=== PATIENT | female | born 1965 | race Caucasian/White ===

== ENCOUNTER 2018-09-21 12:24 | Observation (INO) | payer BC ==
[~2018-09-21] VITALS: Ht 160 cm; Wt 169.8 kg
--- NOTE | 2018-09-21 13:07 | RAD ---
PORTABLE CHEST 1V History: chest pain Comparison: None. Findings: Single view of the chest is submitted. There are couple of somewhat round opacities of the right lung base not appreciated on previous exam. There is no pneumothorax or pleural fluid. Pericardial cardiac silhouette is enlarged although stable. Impression: 1. There are couple of somewhat round opacities of the right lung base not appreciated on previous exam, nodules not excluded for which CT evaluation recommended. Electronically signed by: Alex Carpio MD (09/21/2018 1:04 PM) [id number]
[2018-09-21] MEDS ORDERED: LIDO:MAALOX 1:1 20 ML SINGLE DOSE. SWSW ONE (13:15)
[2018-09-21 13:21] LABS: BASO # 0.1 x10^3/uL (0.0-0.2); BASO % 1 % (0-3); EOS # 0.1 x10^3/uL (0.0-0.7); EOS % 1 % (0-3); HEMATOCRIT 37.4 % (36.0-47.0); HEMOGLOBIN 12.1 g/dL (12.0-15.5); LYMPH # 2.8 x10^3/uL (1.0-4.8); LYMPH % 23 % (24-48); MEAN CORPUSCULAR HEMOGLOBIN 27 pg (25-35); MEAN CORPUSCULAR HGB CONC 33 g/dL (31-37); MEAN CORPUSCULAR VOLUME 84 fL (79-100); MONO # 1.1 x10^3/uL (0.0-1.1); MONO % 9 % (0-9); NEUT # 8.3 x10^3uL (1.8-7.7); NEUT % 67 % (31-73); PLATELET COUNT 335 x10^3/uL (140-400); RED BLOOD COUNT 4.48 x10^6/uL (3.50-5.40); RED CELL DISTRIBUTION WIDTH 16.4 % (11.5-14.5); WHITE BLOOD COUNT 12.4 x10^3/uL (4.0-11.0)
[2018-09-21 13:35] LABS: PROTHROMBIN TIME PATIENT 13.4 SEC (11.7-14.0)
[2018-09-21 13:43] LABS: CALCIUM 9.4 mg/dL (8.5-10.1); CREATININE 0.9 mg/dL (0.6-1.0); POTASSIUM 3.9 mmol/L (3.5-5.1)
[2018-09-21 13:48] LABS: ALBUMIN 3.4 g/dL (3.4-5.0); ALBUMIN/GLOBULIN RATIO 0.8 (1.0-1.7); TOTAL BILIRUBIN 0.6 mg/dL (0.2-1.0); TOTAL PROTEIN 7.5 g/dL (6.4-8.2)
[2018-09-21] MEDS ORDERED: ASPIRIN CHEWABLE 81 MG TABLET. PO ONE (14:30)
[2018-09-21] MEDS ORDERED: IOHEXOL 350 MG/ML 100 ML VIAL. IV ONE (14:45)
[2018-09-21] MEDS ORDERED: CONTRAST GIVEN. MC PRN (15:00)
--- NOTE | 2018-09-21 15:11 | EKG ---
[facility] [address] [place] [address] Test Date: 2018-09-21 Test Time: 12:34:04 Pat Name: ARLENE SALAZAR Department: Room: Gender: F Director Of Research And Development: : 1965 Requested By: BEVERLY REILLY Order Number: [id number] Reading MD: Shadi Godoy Measurements Intervals [place] Rate: 86 P: 32 AK: 164 QRS: 0 QRSD: 98 T: 30 QT: 384 QTc: 463 Interpretive Statements SINUS RHYTHM LEFTWARD AXIS Electronically Signed On 09-25-2018 9:20:21 CDT by Shadi Godoy
--- NOTE | 2018-09-21 15:30 | PHYS DOC ---
Past Medical History Past Medical History: Anxiety, Asthma, GERD, Hypertension Past Surgical History: Cholecystectomy, Other Additional Past Surgical Histo: I&D/REMOVE INFECTION/BX'S Alcohol Use: None Drug Use: None Adult General Chief Complaint Chief Complaint: CHEST PAIN HPI HPI Patient is a 53 year old female is presenting with chief complaint of chest pain. Initially she told me that it was, like a burning and sharp pain in her to take a deep breath but then her family member who was at the bedside told me that it is more like a squeezing pain she feels it in both of her shoulders she gets short of breath when she stands up too long it is making it difficult for her to work it is happening with more frequency over the last couple of weeks. The family members quite concerned about her overall situation. The patient had a stress test about 3 or 4 years ago U reportedly in the setting of elevated blood pressure. Review of Systems Review of Systems Constitutional: Denies fever or chills [] Eyes: Denies change in visual acuity, redness, or eye pain [] \ : Denies dysuria or hematuria [] Musculoskeletal: Denies back pain or joint pain [] Integument: Denies rash or skin lesions [] Neurologic: Denies headache, focal weakness or sensory changes [] Endocrine: Denies polyuria or polydipsia [] All other systems were reviewed and found to be within normal limits, except as documented in this note. Current Medications Current Medications Current Medications Medications (Trade) Dose Ordered Sig/Ravindra Start Time Stop Time Status Last Admin Dose Admin Aspirin (Children'S Aspirin) 324 mg 1X ONCE 09/21/18 14:30 09/21/18 14:40 DC 09/21/18 14:42 324 MG Info (CONTRAST GIVEN -- Rx MONITORING) 1 each PRN DAILY PRN 09/21/18 15:00 09/23/18 14:59 Iohexol (Omnipaque 350 Mg/ml) 100 ml 1X ONCE 09/21/18 14:45 09/21/18 14:48 DC 09/21/18 14:45 100 ML Multi-Ingredient Mouthwash/Gargle (Gi Cocktail) 20 ml 1X ONCE 09/21/18 13:15 09/21/18 13:16 DC 09/21/18 13:23 20 ML Allergies Allergies Allergies Uncoded Allergies Type Severity Reaction Last Updated Verified ARTIFICIAL SWEETNERS Allergy Unknown 09/21/18 Physical Exam Physical Exam Constitutional: Well developed, obese, no acute distress, non-toxic appearance. [] HENT: Normocephalic, atraumatic, bilateral external ears normal, oropharynx moist, no oral exudates, nose normal. [] Eyes: PERRLA, EOMI, conjunctiva normal, no discharge. [] Neck: Normal range of motion, no tenderness, supple, no stridor. [] Cardiovascular:Heart rate regular rhythm, no murmur [] Lungs & Thorax: Bilateral breath sounds clear to auscultation [] Abdomen: Bowel sounds normal, soft, no tenderness, no masses, no pulsatile mass es. [] Skin: Warm, dry, no erythema, no rash. [] Back: No tenderness, no CVA tenderness. [] Extremities: No tenderness, no cyanosis, no clubbing, ROM intact, no edema. [] Neurologic: Alert and oriented X 3, normal motor function, normal sensory function, no focal deficits noted. [] Psychologic: Affect normal, judgement normal, mood normal. [] Current Patient Data Vital Signs Vital Signs Date Time Temp Pulse Resp B/P (MAP) Pulse Ox O2 Delivery O2 Flow Rate FiO2 09/21/18 12:30 97.5 89 16 134/66 (88) 97 Room Air 97.5 Lab Values Laboratory Tests Test 09/21/18 13:10 White Blood Count 12.4 x10^3/uL (4.0-11.0) H Red Blood Count 4.48 x10^6/uL (3.50-5.40) Hemoglobin 12.1 g/dL (12.0-15.5) Hematocrit 37.4 % (36.0-47.0) Mean Corpuscular Volume 84 fL (79-100) Mean Corpuscular Hemoglobin 27 pg (25-35) Mean Corpuscular Hemoglobin Concent 33 g/dL (31-37) Red Cell Distribution Width 16.4 % (11.5-14.5) H Platelet Count 335 x10^3/uL (140-400) Neutrophils (%) (Auto) 67 % (31-73) Lymphocytes (%) (Auto) 23 % (24-48) L Monocytes (%) (Auto) 9 % (0-9) Eosinophils (%) (Auto) 1 % (0-3) Basophils (%) (Auto) 1 % (0-3) Neutrophils # (Auto) 8.3 x10^3uL (1.8-7.7) H Lymphocytes # (Auto) 2.8 x10^3/uL (1.0-4.8) Monocytes # (Auto) 1.1 x10^3/uL (0.0-1.1) Eosinophils # (Auto) 0.1 x10^3/uL (0.0-0.7) Basophils # (Auto) 0.1 x10^3/uL (0.0-0.2) Prothrombin Time 13.4 SEC (11.7-14.0) Prothrombin Time INR 1.1 (0.8-1.1) D-Dimer (Jovana) 0.97 ug/mlFEU (0.00-0.50) H Sodium Level 138 mmol/L (136-145) Potassium Level 3.9 mmol/L (3.5-5.1) Chloride Level 100 mmol/L (98-107) Carbon Dioxide Level 26 mmol/L (21-32) Anion Gap 12 (6-14) Blood Urea Nitrogen 15 mg/dL (7-20) Creatinine 0.9 mg/dL (0.6-1.0) Estimated GFR (Cockcroft-Gault) 66.0 BUN/Creatinine Ratio 17 (6-20) Glucose Level 97 mg/dL (70-99) Calcium Level 9.4 mg/dL (8.5-10.1) Total Bilirubin 0.6 mg/dL (0.2-1.0) Aspartate Amino Transferase (AST) 30 U/L (15-37) Alanine Aminotransferase (ALT) 36 U/L (14-59) Alkaline Phosphatase 75 U/L (46-116) Troponin I Quantitative < 0.017 ng/mL (0.000-0.055) Total Protein 7.5 g/dL (6.4-8.2) Albumin 3.4 g/dL (3.4-5.0) Albumin/Globulin Ratio 0.8 (1.0-1.7) L Lipase 139 U/L (73-393) Laboratory Tests 09/21/18 13:10 Laboratory Tests 09/21/18 13:10 EKG EKG []EKG shows a normal sinus rhythm rate of 86 no acute STEMI or ischemia identified Radiology/Procedures Radiology/Procedures [] Impressions: Impression: 1. There are couple of somewhat round opacities of the right lung base not appreciated on previous exam, nodules not excluded for which CT evaluation recommended. Electronically signed by: Ant Mckeon MD (09/21/2018 1:04 PM) [id number] DICTATED and SIGNED BY: ANT MCKEON MD DATE: 09/21/18 0030 Course & Med Decision Making Course & Med Decision Making Pertinent Labs and Imaging studies reviewed. 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 Dragon Disclaimer Dragon Disclaimer This electronic medical record was generated, in whole or in part, using a voice recognition dictation system. Departure Departure Impression: Primary Impression: Chest pain Disposition: ADMITTED INPATIENT Admitting Physician: Bereket Cornejo Condition: STABLE Referrals: NON,STAFF (PCP) BEVERLY REILLY MD Sep 21, 2018 15:30
--- NOTE | 2018-09-21 15:50 | RAD ---
Chest CTA History: Shortness of air and chest pain for 2 days Technique: After bolus of intravenous contrast, CT imaging was performed of the chest. Multiplanar reconstruction images to include MIP reconstruction images are submitted. Exposure: One or more of the following individualized dose reduction techniques were utilized for this examination: 1. Automated exposure control 2. Adjustment of the mA and/or kV according to patient size 3. Use of iterative reconstruction technique. Comparison: Chest radiograph the same day and previous chest CT May 14, 2009 Findings: [ ] Contrast bolus in the pulmonary arteries is suboptimal and there is motion degradation. No embolism is identified of the main pulmonary arteries although otherwise difficult to accurately evaluate for pulmonary embolic disease of the smaller and more distal branches. There is new cavitary lesion of the right lower lobe now present best seen on axial image 66 series 3, measures about 1.6 cm transverse by 1.3 cm AP by 1.3 cm cc. There is right middle lobe mass now present about 1.8 x 1 cm axial oblique dimensions by 1.5 cm CC best seen image 75 series 3. Previously there was large area of infiltrate of the right middle lobe. There are some small calcified left lower lobe pulmonary nodules as seen previously. Major airways are patent. There is no pericardial pleural fluid or pneumothorax. There is likely hepatic steatosis. No significantly enlarged nodes are identified of the chest, some small mediastinal lobes, largest pretracheal node about 0.6 cm short axis dimension. There is multilevel thoracic spondylosis. Impression: 1. No central pulmonary embolism is identified of the main pulmonary arteries although otherwise cannot accurately evaluate for pulmonary embolic disease on this exam. 2. There is now cavitary nodule of the right lower lobe, also noncalcified mass of the right middle lobe. Neoplasm is not excluded although sequela of infection is possible including consideration of tuberculosis given cavitation. On the previous 2008 exam there was a large area of infiltrate of the right middle lobe, focus of nodularity of the right middle lobe potentially related to sequela of fibrosis although other nodule not excluded. Potentially PET CT may be beneficial to assess for degree of metabolic activity. Electronically signed by: Alex Carpio MD (09/21/2018 3:47 PM) [id number]
[2018-09-21 16:29] VITALS: BP 123/63
[2018-09-21] MEDS ORDERED: AMLO10TA8 PO (17:11)
[2018-09-21] MEDS ORDERED: FERR325T14 PO (17:11)
[2018-09-21] MEDS ORDERED: POTA20TA4 PO (17:11)
[2018-09-21] MEDS ORDERED: ESOM20CA PO (17:11)
[2018-09-21] MEDS ORDERED: LISI-334 PO (17:11)
[2018-09-21] MEDS ORDERED: PARO40TA3 PO (17:11)
[2018-09-21] MEDS ORDERED: ALBU2.5V8 INH (17:11)
[2018-09-21] MEDS ORDERED: HYDR12.575 PO (17:11)
[2018-09-21] MEDS ORDERED: METO25TA4 PO (17:11)
[2018-09-21] MEDS ORDERED: ALBUTEROL SULFATE 2.5 MG/3 ML NEBU. INH PRN (17:15)
[2018-09-21 19:12] VITALS: BP 129/73
[2018-09-21] MEDS: METOPROLOL TART IMMED RELEASE 25 MG TABLET. PO SCH (20:53)
[2018-09-21 23:22] VITALS: BP 148/80
[2018-09-22 03:06] VITALS: BP 127/70
[2018-09-22 07:00] VITALS: BP 140/70
[2018-09-22] MEDS ORDERED: PANTOPRAZOLE 40 MG TABLET.DR. PO SCH (07:30)
[2018-09-22] MEDS ORDERED: hydroCHLOROthiazide 12.5 MG CAPSULE PO SCH (09:00)
[2018-09-22] MEDS ORDERED: PARoxetine 20 MG TABLET PO SCH (09:00)
[2018-09-22] MEDS ORDERED: LISINOPRIL 20 MG TABLET PO SCH (09:00)
[2018-09-22] MEDS ORDERED: FERROUS SULFATE 325 MG TABLET. PO SCH (09:00)
[2018-09-22] MEDS ORDERED: POTASSIUM CHLORIDE 20 MEQ TABLET.ER. PO SCH (09:00)
[2018-09-22] MEDS ORDERED: amLODIPine BESYLATE 10 MG TABLET PO SCH (09:00)
--- NOTE | 2018-09-22 09:02 | PDOC1 ---
History and Physical Date of Admission Date of Admission 09/21/18 Identification/Chief Complaint Chief Complaint Chest pain unrelieved with sublingual Nitro, came to ER Source Source: Chart review, Patient History of Present Illness History of Present Illness Several days of chest pain but more severe yesterday prompting her to come to ER but EKG and enzymes not showing acute findings. She has been having exertional dyspnea and work and family have been encouraging her seek more medical atte ntion. She last saw Dr. Massey in office 05/12. She has a hx of a "massive lung infection" from 10 yrs ago resulting in mediastinoscopy, right thoracotomy and lymph node biopsy but cannot give details other than it was not TB. She does not smoke, she has a lot of stress/aggravation at work, she remains morbidly obese. She is on chronic meds for refractory hypertension, GERD, de pression and asthma Past Medical History Cardiovascular: HTN Pulmonary: Asthma, Pneumonia, Other (cavitary lung lesion) GI: GERD Heme/Onc: No pertinent hx Hepatobiliary: No pertinent hx Psych: Depression Rheumatologic: No pertinent hx Infectious disease: Other (Massive lung infection) ENT: No pertinent hx Renal/: No pertinent hx Endocrine: Other (glucose intolerance) Dermatology: No pertinent hx Past Surgical History Past Surgical History: Other (mediatinoscopy, right thoracotomy with removal of lymph nodes) Family History Family History: No Significant Social History Smoke: No ALCOHOL: none Current Problem List Problem List Problems Medical Problems: (1) Chest pain Status: Acute Current Medications Current Medications Current Medications Medications (Trade) Dose Ordered Sig/Ravindra Start Time Stop Time Status Last Admin Dose Admin Albuterol Sulfate (Ventolin Neb Soln) 2.5 mg PRN Q6HRS PRN 09/21/18 17:15 Amlodipine Besylate (Norvasc) 10 mg DAILY 09/22/18 09:00 Aspirin (Children'S Aspirin) 324 mg 1X ONCE 09/21/18 14:30 09/21/18 14:40 DC 09/21/18 14:42 324 MG Ferrous Sulfate (Feosol) 325 mg DAILY 09/22/18 09:00 Hydrochlorothiazide (Microzide) 12.5 mg DAILY 09/22/18 09:00 Info (CONTRAST GIVEN -- Rx MONITORING) 1 each PRN DAILY PRN 09/21/18 15:00 09/23/18 14:59 Iohexol (Omnipaque 350 Mg/ml) 100 ml 1X ONCE 09/21/18 14:45 09/21/18 14:48 DC 09/21/18 14:45 100 ML Lisinopril (Prinivil) 20 mg DAILY 09/22/18 09:00 Metoprolol Tartrate (Lopressor) 25 mg BID 09/21/18 21:00 09/21/18 20:53 25 MG Multi-Ingredient Mouthwash/Gargle (Gi Cocktail) 20 ml 1X ONCE 09/21/18 13:15 09/21/18 13:16 DC 09/21/18 13:23 20 ML Pantoprazole Sodium (Protonix) 40 mg DAILYAC 09/22/18 07:30 Paroxetine HCl (Paxil) 40 mg DAILY 09/22/18 09:00 Potassium Chloride (Klor-Con) 20 meq DAILY 09/22/18 09:00 Allergies Allergies Allergies Coded Allergies Type Severity Reaction Last Updated Verified aspartame Allergy Intermediate 09/22/18 Yes saccharin Allergy Intermediate 09/22/18 Yes sucralose Allergy Intermediate 09/22/18 Yes ROS Review of System CONSTITUTIONAL: No fever or chills EYES: No recent changes SKIN: No rash or itching CARDIOVASCULAR: see HPI RESPIRATORY: SOA with activity GASTROINTESTINAL: No nausea, vomiting or abdominal pain NEUROLOGICAL: No headaches or weakness ENDOCRINE: No cold or heat intolerance GENITOURINARY: No urgency or frequency of urination MUSCULOSKELETAL: No back pain or joint pain LYMPHATICS: No enlarged lymph nodes PSYCHIATRIC: work stress Physical Exam Physical Exam GEN.: No apparent distress. Alert and oriented. HEENT: Head is normocephalic, atraumatic NECK: Supple. LUNGS: Clear to auscultation. HEART: RRR, S1, S2 present. Peripheral pulses intact ABDOMEN: Obese, Soft, nontender. Positive bowel sounds. EXTREMITIES: Without any cyanosis. NEUROLOGIC: Normal speech, normal tone PSYCHIATRIC: Normal affect, normal mood. SKIN: No ulcerations Vitals Vitals Vital Signs Date Time Temp Pulse Resp B/P (MAP) Pulse Ox O2 Delivery O2 Flow Rate FiO2 09/22/18 07:00 97.3 72 16 140/70 (93) 96 Room Air 97.3 Labs Labs Laboratory Tests Test 09/21/18 13:10 09/21/18 17:30 09/21/18 20:25 09/22/18 04:00 White Blood Count 12.4 x10^3/uL (4.0-11.0) Red Blood Count 4.48 x10^6/uL (3.50-5.40) Hemoglobin 12.1 g/dL (12.0-15.5) Hematocrit 37.4 % (36.0-47.0) Mean Corpuscular Volume 84 fL (79-100) Mean Corpuscular Hemoglobin 27 pg (25-35) Mean Corpuscular Hemoglobin Concent 33 g/dL (31-37) Red Cell Distribution Width 16.4 % (11.5-14.5) Platelet Count 335 x10^3/uL (140-400) Neutrophils (%) (Auto) 67 % (31-73) Lymphocytes (%) (Auto) 23 % (24-48) Monocytes (%) (Auto) 9 % (0-9) Eosinophils (%) (Auto) 1 % (0-3) Basophils (%) (Auto) 1 % (0-3) Neutrophils # (Auto) 8.3 x10^3uL (1.8-7.7) Lymphocytes # (Auto) 2.8 x10^3/uL (1.0-4.8) Monocytes # (Auto) 1.1 x10^3/uL (0.0-1.1) Eosinophils # (Auto) 0.1 x10^3/uL (0.0-0.7) Basophils # (Auto) 0.1 x10^3/uL (0.0-0.2) Prothrombin Time 13.4 SEC (11.7-14.0) Prothromb Time International Ratio 1.1 (0.8-1.1) D-Dimer (Jovana) 0.97 ug/mlFEU (0.00-0.50) Sodium Level 138 mmol/L (136-145) Potassium Level 3.9 mmol/L (3.5-5.1) Chloride Level 100 mmol/L (98-107) Carbon Dioxide Level 26 mmol/L (21-32) Anion Gap 12 (6-14) Blood Urea Nitrogen 15 mg/dL (7-20) Creatinine 0.9 mg/dL (0.6-1.0) Estimated GFR (Cockcroft-Gault) 66.0 BUN/Creatinine Ratio 17 (6-20) Glucose Level 97 mg/dL (70-99) Calcium Level 9.4 mg/dL (8.5-10.1) Total Bilirubin 0.6 mg/dL (0.2-1.0) Aspartate Amino Transf (AST/SGOT) 30 U/L (15-37) Alanine Aminotransferase (ALT/SGPT) 36 U/L (14-59) Alkaline Phosphatase 75 U/L (46-116) Troponin I Quantitative < 0.017 ng/mL (0.000-0.055) < 0.017 ng/mL (0.000-0.055) < 0.017 ng/mL (0.000-0.055) Total Protein 7.5 g/dL (6.4-8.2) Albumin 3.4 g/dL (3.4-5.0) Albumin/Globulin Ratio 0.8 (1.0-1.7) Lipase 139 U/L (73-393) Triglycerides Level 123 mg/dL (0-150) Cholesterol Level 165 mg/dL (0-200) LDL Cholesterol, Calculated 107 mg/dL (0-100) VLDL Cholesterol, Calculated 25 mg/dL (0-40) Non-HDL Cholesterol Calculated 132 mg/dL (0-129) HDL Cholesterol 33 mg/dL (40-60) Cholesterol/HDL Ratio 5.0 Laboratory Tests Test 09/21/18 13:10 09/21/18 17:30 09/21/18 20:25 09/22/18 04:00 White Blood Count 12.4 x10^3/uL (4.0-11.0) Red Blood Count 4.48 x10^6/uL (3.50-5.40) Hemoglobin 12.1 g/dL (12.0-15.5) Hematocrit 37.4 % (36.0-47.0) Mean Corpuscular Volume 84 fL (79-100) Mean Corpuscular Hemoglobin 27 pg (25-35) Mean Corpuscular Hemoglobin Concent 33 g/dL (31-37) Red Cell Distribution Width 16.4 % (11.5-14.5) Platelet Count 335 x10^3/uL (140-400) Neutrophils (%) (Auto) 67 % (31-73) Lymphocytes (%) (Auto) 23 % (24-48) Monocytes (%) (Auto) 9 % (0-9) Eosinophils (%) (Auto) 1 % (0-3) Basophils (%) (Auto) 1 % (0-3) Neutrophils # (Auto) 8.3 x10^3uL (1.8-7.7) Lymphocytes # (Auto) 2.8 x10^3/uL (1.0-4.8) Monocytes # (Auto) 1.1 x10^3/uL (0.0-1.1) Eosinophils # (Auto) 0.1 x10^3/uL (0.0-0.7) Basophils # (Auto) 0.1 x10^3/uL (0.0-0.2) Prothrombin Time 13.4 SEC (11.7-14.0) Prothromb Time International Ratio 1.1 (0.8-1.1) D-Dimer (Jovana) 0.97 ug/mlFEU (0.00-0.50) Sodium Level 138 mmol/L (136-145) Potassium Level 3.9 mmol/L (3.5-5.1) Chloride Level 100 mmol/L (98-107) Carbon Dioxide Level 26 mmol/L (21-32) Anion Gap 12 (6-14) Blood Urea Nitrogen 15 mg/dL (7-20) Creatinine 0.9 mg/dL (0.6-1.0) Estimated GFR (Cockcroft-Gault) 66.0 BUN/Creatinine Ratio 17 (6-20) Glucose Level 97 mg/dL (70-99) Calcium Level 9.4 mg/dL (8.5-10.1) Total Bilirubin 0.6 mg/dL (0.2-1.0) Aspartate Amino Transf (AST/SGOT) 30 U/L (15-37) Alanine Aminotransferase (ALT/SGPT) 36 U/L (14-59) Alkaline Phosphatase 75 U/L (46-116) Troponin I Quantitative < 0.017 ng/mL (0.000-0.055) < 0.017 ng/mL (0.000-0.055) < 0.017 ng/mL (0.000-0.055) Total Protein 7.5 g/dL (6.4-8.2) Albumin 3.4 g/dL (3.4-5.0) Albumin/Globulin Ratio 0.8 (1.0-1.7) Lipase 139 U/L (73-393) Triglycerides Level 123 mg/dL (0-150) Cholesterol Level 165 mg/dL (0-200) LDL Cholesterol, Calculated 107 mg/dL (0-100) VLDL Cholesterol, Calculated 25 mg/dL (0-40) Non-HDL Cholesterol Calculated 132 mg/dL (0-129) HDL Cholesterol 33 mg/dL (40-60) Cholesterol/HDL Ratio 5.0 Images Images Chest CTA History: Shortness of air and chest pain for 2 days Technique: After bolus of intravenous contrast, CT imaging was performed of the chest. Multiplanar reconstruction images to include MIP reconstruction images are submitted. Exposure: One or more of the following individualized dose reduction techniques were utilized for this examination: 1. Automated exposure control 2. Adjustment of the mA and/or kV according to patient size 3. Use of iterative reconstruction technique. Comparison: Chest radiograph the same day and previous chest CT May 14, 2009 Findings: [ ] Contrast bolus in the pulmonary arteries is suboptimal and there is motion degradation. No embolism is identified of the main pulmonary arteries although otherwise difficult to accurately evaluate for pulmonary embolic disease of the smaller and more distal branches. There is new cavitary lesion of the right lower lobe now present best seen on axial image 66 series 3, measures about 1.6 cm transverse by 1.3 cm AP by 1.3 cm cc. There is right middle lobe mass now present about 1.8 x 1 cm axial oblique dimensions by 1.5 cm CC best seen image 75 series 3. Previously there was large area of infiltrate of the right middle lobe. There are some small calcified left lower lobe pulmonary nodules as seen previously. Major airways are patent. There is no pericardial pleural fluid or pneumothorax. There is likely hepatic steatosis. No significantly enlarged nodes are identified of the chest, some small mediastinal lobes, largest pretracheal node about 0.6 cm short axis dimension. There is multilevel thoracic spondylosis. Impression: 1. No central pulmonary embolism is identified of the main pulmonary arteries although otherwise cannot accurately evaluate for pulmonary embolic disease on this exam. 2. There is now cavitary nodule of the right lower lobe, also noncalcified mass of the right middle lobe. Neoplasm is not excluded although sequela of infection is possible including consideration of tuberculosis given cavitation. On the previous 2008 exam there was a large area of infiltrate of the right middle lobe, focus of nodularity of the right middle lobe potentially related to sequela of fibrosis although other nodule not excluded. Potentially PET CT may be beneficial to assess for degree of metabolic activity. VTE Prophylaxis Ordered VTE Prophylaxis Devices: Yes VTE Pharmacological Prophylaxi: Yes Assessment/Plan Assessment/Plan chest pain - initial enzymes and EKG negative for ACS but needs further evalu ation - cardiology to see cavitary lung lesion RLL- hx of work up - no old records in office chart - pulm to see HTN - home meds Depression with work stressors - home meds glucose intolerance morbid obesity Oh LUNA MD Sep 22, 2018 09:02
--- NOTE | 2018-09-22 09:54 | PDOC2 ---
BARON CARRASCO ABSORPTION OPERATOR 09/22/18 0954: CARDIAC CONSULT DATE OF CONSULT Date of Consult DATE: 09/22/18 TIME: 09:43 REASON FOR CONSULT Reason for Consult: Chest pain REFERRING PHYSICIAN Referring Physician: Tara SOURCE Source: Chart review, Patient HISTORY OF PRESENT ILLNESS HISTORY OF PRESENT ILLNESS This is a pleasant 53 yo female admitted for complains of chest pain and shortness of breath. Reports that she started having right rib cage cramping which then resulted to both sides and hurts for her to take a deep breath hence with SOA. Reports that she got nauseated and vomited and her midchest has been having intermittent burning sensation that goes up to her throat. Reports her midchest discomfort is ranging from stabbing to burning with side cramping. No jaw tightness or arm discomfort. Denies any recent falls or injury. No recent fever or chills. She does have GERD and takes medication for it. She does have problem sleeping at night and during the day she feels tired. Denies any past hx of LINDA. No prior CAD and has had LHC few years back which was negative for CAD. PAST MEDICAL HISTORY Cardiovascular: HTN Pulmonary: Asthma GI: GERD Psych: Anxiety Musculoskeletal: Osteoarthritis Endocrine: Other (metabolic syndrome) PAST SURGICAL HISTORY Past Surgical History: Cholecystectomy, Other (right thoracotomy with lymph node excision 05/2009) FAMILY HISTORY Family History noncontributory to CV SOCIAL HISTORY Smoke: No ALCOHOL: none Drugs: None Lives: Alone CURRENT MEDICATIONS CURRENT MEDICATIONS Current Medications Medications (Trade) Dose Ordered Sig/Ravindra Route PRN Reason Start Time Stop Time Status Last Admin Dose Admin Multi-Ingredient Mouthwash/Gargle (Gi Cocktail) 20 ml 1X ONCE SWSW 09/21/18 13:15 09/21/18 13:16 DC 09/21/18 13:23 Aspirin (Children'S Aspirin) 324 mg 1X ONCE PO 09/21/18 14:30 09/21/18 14:40 DC 09/21/18 14:42 Iohexol (Omnipaque 350 Mg/ml) 100 ml 1X ONCE IV 09/21/18 14:45 09/21/18 14:48 DC 09/21/18 14:45 Metoprolol Tartrate (Lopressor) 25 mg BID PO 09/21/18 21:00 09/21/18 20:53 ALLERGIES ALLERGIES: Coded Allergies: aspartame (Verified Allergy, Intermediate, 09/22/18) saccharin (Verified Allergy, Intermediate, 09/22/18) sucralose (Verified Allergy, Intermediate, 09/22/18) ROS Review of System 14 point ROS evaluated with pertinent positives noted per HPI PHYSICAL EXAM General: Alert, Oriented X3, Cooperative, No acute distress HEENT: Atraumatic, Mucous membr. moist/pink Lungs: Clear to auscultation, Normal air movement Heart: Regular rate (SR), Other (distant heart sounds) Abdomen: Soft, No tenderness, Other (obese) Extremities: No cyanosis, No edema Skin: No breakdown, No significant lesion Neuro: Normal speech, Sensation intact Psych/Mental Status: Mental status NL, Other (anxious) MUSCULOSKELETAL: Osteoarthritic changes both hands VITALS VITALS Vital Signs Date Time Temp Pulse Resp B/P (MAP) Pulse Ox O2 Delivery O2 Flow Rate FiO2 09/22/18 07:00 97.3 72 16 140/70 (93) 96 Room Air 97.3 LABS Lab: Laboratory Tests Test 09/21/18 13:10 09/21/18 17:30 09/21/18 20:25 09/22/18 04:00 White Blood Count 12.4 x10^3/uL (4.0-11.0) Red Blood Count 4.48 x10^6/uL (3.50-5.40) Hemoglobin 12.1 g/dL (12.0-15.5) Hematocrit 37.4 % (36.0-47.0) Mean Corpuscular Volume 84 fL (79-100) Mean Corpuscular Hemoglobin 27 pg (25-35) Mean Corpuscular Hemoglobin Concent 33 g/dL (31-37) Red Cell Distribution Width 16.4 % (11.5-14.5) Platelet Count 335 x10^3/uL (140-400) Neutrophils (%) (Auto) 67 % (31-73) Lymphocytes (%) (Auto) 23 % (24-48) Monocytes (%) (Auto) 9 % (0-9) Eosinophils (%) (Auto) 1 % (0-3) Basophils (%) (Auto) 1 % (0-3) Neutrophils # (Auto) 8.3 x10^3uL (1.8-7.7) Lymphocytes # (Auto) 2.8 x10^3/uL (1.0-4.8) Monocytes # (Auto) 1.1 x10^3/uL (0.0-1.1) Eosinophils # (Auto) 0.1 x10^3/uL (0.0-0.7) Basophils # (Auto) 0.1 x10^3/uL (0.0-0.2) Prothrombin Time 13.4 SEC (11.7-14.0) Prothromb Time International Ratio 1.1 (0.8-1.1) D-Dimer (Jovana) 0.97 ug/mlFEU (0.00-0.50) Sodium Level 138 mmol/L (136-145) Potassium Level 3.9 mmol/L (3.5-5.1) Chloride Level 100 mmol/L (98-107) Carbon Dioxide Level 26 mmol/L (21-32) Anion Gap 12 (6-14) Blood Urea Nitrogen 15 mg/dL (7-20) Creatinine 0.9 mg/dL (0.6-1.0) Estimated GFR (Cockcroft-Gault) 66.0 BUN/Creatinine Ratio 17 (6-20) Glucose Level 97 mg/dL (70-99) Calcium Level 9.4 mg/dL (8.5-10.1) Total Bilirubin 0.6 mg/dL (0.2-1.0) Aspartate Amino Transf (AST/SGOT) 30 U/L (15-37) Alanine Aminotransferase (ALT/SGPT) 36 U/L (14-59) Alkaline Phosphatase 75 U/L (46-116) Troponin I Quantitative < 0.017 ng/mL (0.000-0.055) < 0.017 ng/mL (0.000-0.055) < 0.017 ng/mL (0.000-0.055) Total Protein 7.5 g/dL (6.4-8.2) Albumin 3.4 g/dL (3.4-5.0) Albumin/Globulin Ratio 0.8 (1.0-1.7) Lipase 139 U/L (73-393) Triglycerides Level 123 mg/dL (0-150) Cholesterol Level 165 mg/dL (0-200) LDL Cholesterol, Calculated 107 mg/dL (0-100) VLDL Cholesterol, Calculated 25 mg/dL (0-40) Non-HDL Cholesterol Calculated 132 mg/dL (0-129) HDL Cholesterol 33 mg/dL (40-60) Cholesterol/HDL Ratio 5.0 ASSESSMENT/PLAN ASSESSMENT/PLAN 1. Atypical Chest pain: trops nml. EKG SR without acute changes. Suspect GI/MSK, noncardiac. 2. Morbid obesity 3. Metabolic syndrome: last noted A1C at 5.9 4. DLP 5. Right lung cavitary lesion with prior hx of thoracotomy in 2009: pulmonary consulted. 6. GERD exacerbation; per PCP Recommendations 1. Lifestyle modification 2. Baseline TTE 3. Continue home BP med. 4. Will need outpt LINDA workup. KEVIN FERMIN MD 09/22/18 1508: CARDIAC CONSULT ASSESSMENT/PLAN ASSESSMENT/PLAN Patient seen and examined. Agree with CAD DESIGNER's assessment and plan. Chest pain with atypical features and most probably musculoskeletal. Myocardial infarction has been ruled out. Check 2-D echo to assess LV systolic function and rule out wall motion abnormalities. Ischemic workup in the form of stress test could be considered as an outpatient. Thank you for your consultation. BARON CARRASCO APRN Sep 22, 2018 09:54 KEVIN FERMIN MD Sep 22, 2018 15:08
[2018-09-22 11:00] VITALS: BP 133/76
[2018-09-22] MEDS: METOPROLOL TART IMMED RELEASE 25 MG TABLET. PO SCH (12:42)
[2018-09-22 12:43] VITALS: BP 133/76
--- NOTE | 2018-09-22 14:47 | PDOC ---
PULMONARY PROGRESS NOTES Vitals Vital Signs Date Time Temp Pulse Resp B/P (MAP) Pulse Ox O2 Delivery O2 Flow Rate FiO2 09/22/18 12:43 65 133/76 09/22/18 11:00 98.0 16 96 Room Air 98.0 Labs Laboratory Tests Test 09/21/18 13:10 09/21/18 17:30 09/21/18 20:25 09/22/18 04:00 White Blood Count 12.4 x10^3/uL (4.0-11.0) Red Blood Count 4.48 x10^6/uL (3.50-5.40) Hemoglobin 12.1 g/dL (12.0-15.5) Hematocrit 37.4 % (36.0-47.0) Mean Corpuscular Volume 84 fL (79-100) Mean Corpuscular Hemoglobin 27 pg (25-35) Mean Corpuscular Hemoglobin Concent 33 g/dL (31-37) Red Cell Distribution Width 16.4 % (11.5-14.5) Platelet Count 335 x10^3/uL (140-400) Neutrophils (%) (Auto) 67 % (31-73) Lymphocytes (%) (Auto) 23 % (24-48) Monocytes (%) (Auto) 9 % (0-9) Eosinophils (%) (Auto) 1 % (0-3) Basophils (%) (Auto) 1 % (0-3) Neutrophils # (Auto) 8.3 x10^3uL (1.8-7.7) Lymphocytes # (Auto) 2.8 x10^3/uL (1.0-4.8) Monocytes # (Auto) 1.1 x10^3/uL (0.0-1.1) Eosinophils # (Auto) 0.1 x10^3/uL (0.0-0.7) Basophils # (Auto) 0.1 x10^3/uL (0.0-0.2) Prothrombin Time 13.4 SEC (11.7-14.0) Prothromb Time International Ratio 1.1 (0.8-1.1) D-Dimer (Jovana) 0.97 ug/mlFEU (0.00-0.50) Sodium Level 138 mmol/L (136-145) Potassium Level 3.9 mmol/L (3.5-5.1) Chloride Level 100 mmol/L (98-107) Carbon Dioxide Level 26 mmol/L (21-32) Anion Gap 12 (6-14) Blood Urea Nitrogen 15 mg/dL (7-20) Creatinine 0.9 mg/dL (0.6-1.0) Estimated GFR (Cockcroft-Gault) 66.0 BUN/Creatinine Ratio 17 (6-20) Glucose Level 97 mg/dL (70-99) Calcium Level 9.4 mg/dL (8.5-10.1) Total Bilirubin 0.6 mg/dL (0.2-1.0) Aspartate Amino Transf (AST/SGOT) 30 U/L (15-37) Alanine Aminotransferase (ALT/SGPT) 36 U/L (14-59) Alkaline Phosphatase 75 U/L (46-116) Troponin I Quantitative < 0.017 ng/mL (0.000-0.055) < 0.017 ng/mL (0.000-0.055) < 0.017 ng/mL (0.000-0.055) Total Protein 7.5 g/dL (6.4-8.2) Albumin 3.4 g/dL (3.4-5.0) Albumin/Globulin Ratio 0.8 (1.0-1.7) Lipase 139 U/L (73-393) Triglycerides Level 123 mg/dL (0-150) Cholesterol Level 165 mg/dL (0-200) LDL Cholesterol, Calculated 107 mg/dL (0-100) VLDL Cholesterol, Calculated 25 mg/dL (0-40) Non-HDL Cholesterol Calculated 132 mg/dL (0-129) HDL Cholesterol 33 mg/dL (40-60) Cholesterol/HDL Ratio 5.0 Laboratory Tests Test 09/21/18 17:30 09/21/18 20:25 09/22/18 04:00 Troponin I Quantitative < 0.017 ng/mL (0.000-0.055) < 0.017 ng/mL (0.000-0.055) Triglycerides Level 123 mg/dL (0-150) Cholesterol Level 165 mg/dL (0-200) LDL Cholesterol, Calculated 107 mg/dL (0-100) VLDL Cholesterol, Calculated 25 mg/dL (0-40) Non-HDL Cholesterol Calculated 132 mg/dL (0-129) HDL Cholesterol 33 mg/dL (40-60) Cholesterol/HDL Ratio 5.0 Medications Active Scripts Medications Dose Route/Sig Max Daily Dose Days Date Category Klor-Con M20 (Potassium Chloride) 20 Meq Tab.er.prt 1 Tab PO DAILY 09/21/18 Rx Lisinopril 20 Mg Tablet 1 Tab PO DAILY 09/21/18 Rx Paroxetine Hcl 40 Mg Tablet 1 Tab PO DAILY 09/21/18 Rx Metoprolol Tartrate 25 Mg Tablet 1 Tab PO BID 30 09/21/18 Rx Hydrochlorothiazide Capsule (Hydrochlorothiazide) 12.5 Mg Capsule 12.5 Mg PO DAILY 30 09/21/18 Rx Amlodipine Besylate 10 Mg Tablet 10 Mg PO DAILY 30 09/21/18 Rx Proair Hfa Inhaler (Albuterol Sulfate) 8.5 Gm Hfa.aer.ad 1 Puff INH PRN Q6HRS PRN 30 09/21/18 Rx Ferrous Sulfate 325 Mg Tablet 1 Tab PO DAILY 09/21/18 Rx Nexium Capsule (Esomeprazole Magnesium) 20 Mg Capsule.dr 1 Cap PO DAILY 09/21/18 Rx Impression . FULL NOTE DICTATED OUT PT PET SCANNING D/W PT OK TO D/C FROM MY STANDPOINT TONYA HELM MD Sep 22, 2018 14:47
[2018-09-22] MEDS ORDERED: PERFLUTREN PROTEIN-A MICROSPHR 0.22 MG/ML 3 ML VIAL. IV ONE (15:06)
[2018-09-22] MEDS ORDERED: PERFLUTREN PROTEIN-A MICROSPHR 0.22 MG/ML 3 ML VIAL. IV PRN (16:30)
--- NOTE | 2018-09-22 18:36 | NUR ---
Discharge Note: ARLENE SALAZAR Discharge instructions and discharge home medications reviewed with Patient and a copy given. All questions have been answered and understanding verbalized. The following instructions and handouts were given: Chest pain and weight loss Discontinued iv lines and catheter intact. Patient discharged to home with self care via personal vihicle
--- NOTE | 2018-09-22 18:48 | NUR ---
Discharge Note: ARLENE SALAZAR [address] [place] [address] Discharge instructions and discharge home medications reviewed with Patient and a copy given. All questions have been answered and understanding verbalized. The following instructions and handouts were given: CP and weight loss Discontinued IV line Patient discharged to home with self care via wheelchair
--- NOTE | 2018-09-23 05:59 | CONS ---
DATE OF CONSULTATION: 09/22/2018 ATTENDING PHYSICIAN: Jaylen Cornejo MD REASON FOR CONSULTATION: The patient is seen in pulmonary consultation at the request of Dr. Cornejo for abnormal CT of the chest. HISTORY OF PRESENT ILLNESS: The patient is a 53-year-old that presented with epigastric discomfort. She was worked up with CT angiogram, no pulmonary embolism is visualized. There was a small cavitary lesion on the right side. I was asked to see her in consultation. There is also a noncalcified mass in the right middle lobe. The patient reports no hemoptysis, no fever, chills or night sweats. She denies fever, chills, nausea, vomiting. PAST MEDICAL HISTORY: Remarkable for previous lung infection. Apparently, she had a thoracotomy lymph node biopsy. She was told that was not tuberculosis. Otherwise, she has history of hypertension, morbid obesity, asthma, tobacco dependence in remission. She smoked for approximately 10 years. Gastroesophageal reflux. PAST SURGICAL HISTORY: Previous mediastinoscopy, right thoracotomy with resection of the lymph node. FAMILY HISTORY: No family history of lung cancer. SOCIAL HISTORY: She currently does not smoke. ____. PHYSICAL EXAMINATION: GENERAL: Morbid obese individual in no respiratory distress. VITAL SIGNS: Stable. O2 saturation was greater than 92%. HEENT: Eyes, the sclerae were nonicteric. NECK: Jugular venous distention could not be assessed secondary to body habitus. CHEST: Full expansion. LUNGS: Adequate airway flow, no wheezes. CARDIOVASCULAR: Regular rate and rhythm with S1, S2, no S3. ABDOMEN: Soft, nontender, nondistended. Obese. EXTREMITIES: No pitting edema. NEUROLOGIC: She was awake, alert, following commands. A detailed neuro exam was not performed. CT chest reviewed as indicated above. LABORATORY DATA: Reviewed. White count was slightly elevated. D-dimer was elevated. Electrolytes were noted. IMPRESSION: 1. Abnormal CT chest revealing evidence of cavitary nodule in the right lower lobe. In addition, there is a noncalcified nodule in the right middle lobe. 2. No central pulmonary emboli seen on CT scan. 3. History of previous lung infection. The patient had thoracotomy, mediastinoscopy, reported to be related to an infectious process. 4. Short history of tobacco use, approximately 10 years. 5. Morbid obesity. 6. Asthma. 7. Hypertension. 8. Chest pain, suspect epigastric in nature secondary to reflux. PLAN: We will proceed with outpatient PET scan and follow up in the office thereafter. The patient is okay to discharge from my standpoint of view. I do appreciate the privilege in sharing in the patient's care. TONYA HELM MD DR: REECE/aram JOB#: [id number] / [id number]
--- NOTE | 2018-09-23 11:16 | CARD ---
MR#: [id number] Date of Study: 09/22/2018 Ordering Physician: BARON CARRASCO, Referring Physician: Alee ESPINOZA: Micki Rao RDCS APPROVED REPORT EXAM: Two-dimensional and M-mode echocardiogram with Doppler and color Doppler. Other Information Quality : Technically Limited Technically limited study due to morbid obesity INDICATION Chest Pain Echo Enhancing Agent Agent/Amount Used: Optison 3mL RISK FACTORS Obesity 2D DIMENSIONS RVDd3.1 (2.9-3.5cm)Left Atrium(2D)3.8 (1.6-4.0cm) IVSd1.3 (0.7-1.1cm)Aortic Root(2D)2.9 (2.0-3.7cm) LVDd4.8 (3.9-5.9cm)LVOT Diameter2.2 (1.8-2.4cm) PWd1.3 (0.7-1.1cm)LVDs3.7 (2.5-4.0cm) FS (%) 23.4 %SV49.5 ml LVEF(%)55.0 (>50%) Aortic Valve AoV Peak Oracio.171.0cm/sAoV VTI32.8cm AO Peak GR.11.7mmHgLVOT Peak Oracio.139.6cm/s AO Mean GR.7mmHgAVA (VMAX)3.19cm2 GUZMAN (VTI)3.10cm2 Mitral Valve MV E Wxujmnyo710.6cm/sMV DECEL TMBW194vi MV A Vgrrodsh26.5cm/sE/A Ratio1.4 Tricuspid Valve TR P. Mydwnajx396nd/sRAP VINUEDQY8elCa TR Peak Gr.13atAwSDJW12ueNa Pulmonary Vein S1 Kwsagzzn70.5cm/sD2 Ohfeujze42.5cm/s LEFT VENTRICLE The left ventricle is normal size. There is mild concentric left ventricular hypertrophy. The left ve ntricular systolic function is normal. The ejection fraction is 50-55%. There is normal LV segmental wall motion. Transmitral Doppler flow pattern is Grade II-pseudonormal filling dynamics. RIGHT VENTRICLE The right ventricle is normal size. The right ventricular systolic function is normal. ATRIA The left atrium size is normal. The right atrium size is normal. The interatrial septum is intact wit h no evidence for an atrial septal defect or patent foramen ovale as noted on 2-D or Doppler imaging. AORTIC VALVE The aortic valve is calcified but opens well. Doppler and Color Flow revealed no significant aortic r egurgitation. There is no significant aortic valvular stenosis. MITRAL VALVE The mitral valve is calcified but opens well. Mitral annular calcification is mild. There is no evide nce of mitral valve prolapse. There is no mitral valve stenosis. Doppler and Color Flow revealed no m itral valve regurgitation noted. TRICUSPID VALVE The tricuspid valve is normal in structure and function. Doppler and Color Flow revealed no tricuspid valve regurgitation noted. There is no tricuspid valve stenosis. PULMONIC VALVE The pulmonic valve is not well visualized. Doppler and Color Flow revealed no pulmonic valvular regur gitation. There is no pulmonic valvular stenosis. GREAT VESSELS The aortic root is normal in size. The ascending aorta is not well seen. The IVC was not visualized. PERICARDIAL EFFUSION There is no evidence of significant pericardial effusion. Critical Notification Critical Value: No <Conclusion> The left ventricle is normal size. The left ventricular systolic function is normal. The ejection fraction is 50-55%. There is mild concentric left ventricular hypertrophy. There is no significant aortic valvular stenosis. Doppler and Color Flow revealed no significant aortic regurgitation. Doppler and Color Flow revealed no mitral valve regurgitation noted. Doppler and Color Flow revealed no tricuspid valve regurgitation noted. Signed by : Shadi Godoy MD Electronically Approved : 09/23/2018 11:16:06
--- NOTE | 2018-10-13 16:36 | PDOC3 ---
Discharge Summary [facility] Date of Admission: Sep 21, 2018 Discharge Date: Sep 22, 2018 Admitting Diagnosis chest pain shortness of breath Final Diagnosis Problems Medical Problems: (1) Chest pain Status: Acute CONSULTS pulm, cardiology Procedures none Brief Hospital Course Ms. Camacho is a 53 old who presented with: 1. Chest pain with atypical features and most probably musculoskeletal and from rib cage pain related to vomiting, she also had vomiting prior to admission so may also have had esophagitis. Myocardial infarction has been ruled out. Check 2-D echo to assess LV systolic function and rule out wall motion abnormalities. Ischemic workup in the form of stress test could be considered as an outpatient. 2. Abnormal CT chest revealing evidence of cavitary nodule in the right lower lobe. In addition, there is a noncalcified nodule in the right middle lobe. No central pulmonary emboli was seen on CT scan. She had a history of previous lung infection and thoracotomy, mediastinoscopy, reported to be related to an infectious process. Outpatient PET scan recommended with follow up in the office thereafter. 3. Short history of tobacco use, approximately 10 years. 4. Morbid obesity - consider weight loss surgery. 5. Asthma.- stable, controlled 6. Hypertension - stable controlled. Patient History: FH: HTN (hypertension) 32 MOTHER FH: diabetes mellitus 32 MOTHER FH: uterine cancer 32 MOTHER Disposition home CONDITION AT DISCHARGE: Improved, Stable Scheduled Amlodipine Besylate (Amlodipine Besylate), 10 MG PO DAILY Esomeprazole Magnesium (Nexium Capsule), 1 CAP PO DAILY Ferrous Sulfate (Ferrous Sulfate), 1 TAB PO DAILY Hydrochlorothiazide (Hydrochlorothiazide Capsule ), 12.5 MG PO DAILY Lisinopril (Lisinopril), 1 TAB PO DAILY Metoprolol Tartrate (Metoprolol Tartrate), 1 TAB PO BID Paroxetine Hcl (Paroxetine Hcl), 1 TAB PO DAILY Potassium Chloride (Klor-Con M20), 1 TAB PO DAILY Scheduled PRN Albuterol Sulfate (Proair Hfa Inhaler), 1 PUFF INH PRN Q6HRS PRN for SHORTNESS OF BREATH Follow Up 1-2 weeks Patient Instructions OP PET scan Oh LUNA MD October 13, 2018 16:36
== END 2018-09-22 18:52 | disposition home or self-care (01) ==
LOC: ER 12:24 → 2 NORTH 14:20
PROVIDERS: ADMIT Family Medicine; ATTEND Family Medicine
DX: R07.89 Other chest pain (principal); F41.9 Anxiety disorder, unspecified; J45.909 Unspecified asthma, uncomplicated; K21.9 Gastro-esophageal reflux disease without esophagitis; I10 Essential (primary) hypertension; F32.9 Major depressive disorder, single episode, unspecified; E66.01 Morbid (severe) obesity due to excess calories; J18.9 Pneumonia, unspecified organism; E74.39 Other disorders of intestinal carbohydrate absorption; M47.814 Spondylosis without myelopathy or radiculopathy, thoracic region; Z98.890 Other specified postprocedural states
CPT/HCPCS: 36415; 71045; 71275; 80053; 80061; 83690; 84484; 85025; 85379; 85610; 93005; 96374; 99284; C8929; G0378; G0379; Q9956; Q9967

== ENCOUNTER → 2018-11-19 | Outpatient (CLI) | payer BC ==
[~2018-11-19] MED LIST: ALBU2.5V8 INH; AMLO10TA8 PO; ESOM20CA PO; FERR325T14 PO; HYDR12.575 PO; LISI-334 PO; METO25TA4 PO; PARO40TA3 PO; POTA20TA4 PO
--- NOTE | 2018-11-19 15:08 | RAD ---
FDG tumor localization scan, PET/CT, 11/19/2018: HISTORY: Lung cancer staging Following IV injection of 15.2 mCi of 18 F-FDG, imaging was performed from the skull base to the proximal thighs. The noncontrast CT component was performed for attenuation correction and anatomic localization purposes rather than for primary diagnosis. The patient's blood glucose level at the time of injection was 97 MG/DL. The imaging is suboptimal due to artifacts related to patient size. There is a 21 x 15 mm soft tissue nodule in the right middle lobe which has increased in size since 09/21/2018 at which time it measured approximately 20 x 11 mm. It demonstrates increased FDG uptake with a maximum SUV of 2.7. This is similar to the background mediastinal FDG uptake. There is a 16 mm cavitary nodule in the posterolateral aspect of the right lower lobe. It is of similar size when compared to the 09/21/2018 exam it demonstrates a maximum SUV of 3.4. This is slightly greater than the mediastinal background. No other hypermetabolic pulmonary process is seen. No hypermetabolic mediastinal or hilar adenopathy is delineated. Physiologic activity is evident in the neck. No hypermetabolic neck lesion is seen. Normal GI tract and urinary tract activity is evident in the abdomen and pelvis. No hypermetabolic abdominal or pelvic lesion is seen. Increased activity at both shoulders and in scattered areas in the spine is compatible with arthritis. IMPRESSION: Low level FDG uptake in the enlarging solid right middle lobe nodule and in the cavitary right lower lobe nodule as described above. These findings are suspicious for malignancy, although an inflammatory process cannot be excluded.
== END | disposition home or self-care (01) ==
LOC: PETSC 12:24
PROVIDERS: ATTEND Internal Medicine Pulmonary Disease
DX: R91.8 Other nonspecific abnormal finding of lung field (principal); C34.90 Malignant neoplasm of unspecified part of unspecified bronchus or lung
CPT/HCPCS: 78815; A9552

== ENCOUNTER 2019-01-21 07:05 | Outpatient (CLI) | payer BC ==
[~2019-01-21] VITALS: Ht 157.5 cm; Wt 165.6 kg
[2019-01-21] VITALS (21 sets, daily range): BP systolic 99–144; BP diastolic 56–97
[2019-01-21 07:50] LABS: BASO % 0 % (0-3); EOS # 0.1 x10^3/uL (0.0-0.7); EOS % 1 % (0-3); HEMATOCRIT 38.9 % (36.0-47.0); HEMOGLOBIN 12.7 g/dL (12.0-15.5); LYMPH # 2.9 x10^3/uL (1.0-4.8); LYMPH % 27 % (24-48); MEAN CORPUSCULAR HEMOGLOBIN 28 pg (25-35); MEAN CORPUSCULAR HGB CONC 33 g/dL (31-37); MEAN CORPUSCULAR VOLUME 84 fL (79-100); MONO # 0.7 x10^3/uL (0.0-1.1); MONO % 7 % (0-9); NEUT % 65 % (31-73); PLATELET COUNT 355 x10^3/uL (140-400); RED BLOOD COUNT 4.63 x10^6/uL (3.50-5.40); RED CELL DISTRIBUTION WIDTH 16.5 % (11.5-14.5); WHITE BLOOD COUNT 10.8 x10^3/uL (4.0-11.0)
[2019-01-21] MEDS ORDERED: HYDR12.575 PO (08:02)
[2019-01-21] MEDS ORDERED: sugar blocker PO (08:02)
[2019-01-21] MEDS ORDERED: MULT-245 PO (08:02)
[2019-01-21] MEDS ORDERED: ASPI-630 PO (08:02)
[2019-01-21] MEDS ORDERED: PANT40TA77 PO (08:02)
[2019-01-21] MEDS ORDERED: CINN500C2 PO (08:02)
[2019-01-21] MEDS ORDERED: RANI150C PO (08:02)
[2019-01-21] MEDS ORDERED: [UNRECOGNIZED DRUG - OTHER] PO (08:02)
[2019-01-21] MEDS ORDERED: LISI-334 PO (08:02)
[2019-01-21] MEDS ORDERED: OMEG1CAP38 PO (08:02)
[2019-01-21 08:16] LABS: PROTHROMBIN TIME PATIENT 13.3 SEC (11.7-14.0)
[2019-01-21] MEDS ORDERED: MIDAZOLAM HCL/PF 2 MG/2 ML VIAL. ONE ×2 (08:28→08:49)
[2019-01-21] MEDS ORDERED: fentaNYL PF VIAL 100 MCG/2 ML VIAL ONE ×2 (08:28→08:49)
[2019-01-21] MEDS ORDERED: FLUMAZENIL 0.5 MG/5 ML VIAL. IV ONE (08:28)
[2019-01-21] MEDS ORDERED: NALOXONE 0.4 MG/ML VIAL. ONE (08:29)
[2019-01-21] MEDS ORDERED: GELATIN SPONGE SIZE 12-7MM SPONGE. ONE (08:42)
[2019-01-21] MEDS ORDERED: LIDOCAINE WITH 8.4% SOD BICARB 3 ML DISP.SYRIN. ONE ×2 (08:42→09:27)
--- NOTE | 2019-01-21 09:56 | PDOC ---
MODERATE SEDATION ASSESSMENT RISKS/ALTERNATIVES Risks/Alternatives Risks and alternatives of this type of sedation and procedure discussed with: RISK/ALTERNATIVES: Patient H & P ON CHART H & P H & P on chart and reviewed for co-morbid conditions and appropriate labs. H&P ON CHART: Yes STATUS PREG STATUS ASSESSED: Yes MEDS/ALLERGIES REVIEWED Meds/Allergies Reviewed Medications and Allergies including time and route of recently administered narcotics and sedatives. MEDS/ALLERGIES REVIEWED: Yes ASA RATING ASA RATING: II AIRWAY ASSESSMENT Airway Assessment Airway patency, oral function limitations, presence of caps, crowns, dentures, partials, and ability to extend neck assessed. AIRWAY ASSESSMENT: Yes MALLAMPATI SCORE MALLAMPATI SCORE: II PRE-SEDATION ASSESSMENT PRE-SEDATION ASSESSMENT: Yes AILEEN DEMARCO MD Jan 21, 2019 09:56
--- NOTE | 2019-01-21 09:57 | PDOC ---
BRIEF OPERATIVE NOTE Pre-Op Diagnosis right lung nodules Post-Op Diagnosis same Procedure Performed CT lung biopsy Surgeon Suhas Anesthesia Type: Conscious Sedation Specimens Obtained 4 x 20g cores of enlarging right middle lobe lung nodule Complications No immediate AILEEN DEMARCO MD Jan 21, 2019 09:57
[2019-01-21] MEDS ORDERED: LIDOCAINE WITH 8.4% SOD BICARB 3 ML DISP.SYRIN. IJ ONE (10:00)
[2019-01-21] MEDS ORDERED: fentaNYL PF VIAL 100 MCG/2 ML VIAL IV ONE (10:00)
[2019-01-21] MEDS ORDERED: MIDAZOLAM HCL/PF 2 MG/2 ML VIAL. IV ONE (10:00)
--- NOTE | 2019-01-21 13:39 | NUR ---
Discharge Note: ARLENE SALAZAR Discharge instructions and discharge home medications reviewed with Patient and a copy given. All questions have been answered and understanding verbalized. The following instructions and handouts were given: Moderate Sedation and Lung Biopsy. No driving for 24 hours. No submersion in water for 5-7 days. Discontinued lines and drains: Left AC 22g discontinued. No complications. Patient discharged home with daughter.
--- NOTE | 2019-01-22 07:42 | RAD ---
CHEST AP ONLY Clinical Indication: Status post Right lung biopsy Comparison: 09/21/2018 CTA of the chest. Findings: Portable upright frontal view of the chest was obtained. Heart size is within normal limits. No pneumothorax. No effusion. Pulmonary vasculature is unremarkable. No acute bony process. IMPRESSION: No acute cardiopulmonary process. Electronically signed by: Shaka Mireles MD (01/22/2019 7:39 AM) [facility]
--- NOTE | 2019-01-22 10:26 | RAD ---
Procedure: CT-guided right lung biopsy Clinical Indication: 53-year-old with enlarging right lung nodule Sedation: Conscious sedation was administered with a total intraprocedural [id number] time of 30 minutes. The patient was monitored by a qualified independent observer throughout the time of sedation. Please refer to the medical record for exact doses of medications utilized to achieve moderate sedation. Antibiotics: None Contrast: None Sterility: All elements of maximal sterile barrier technique including the use of a cap, mask, sterile gown, sterile gloves, large sterile sheet, appropriate hand hygiene, and 2% chlorhexidine for cutaneous antisepsis (or acceptable alternative antiseptic per current guidelines) were followed for this procedure. Consent: The procedure was explained in its entirety to the patient or the patients designated business office representative by a member of the treatment team, including a discussion of the risks, benefits and commonly accepted alternatives to the procedure, as well as the expected consequences of no therapy whatsoever. Discussion of the risks included, but was not limited to, those that are most frequent and those that are rare but possibly severe or life-threatening, as well as the possibility of unforeseen complications. Technique and Findings: Following informed consent, the patient was prepped and draped in usual sterile fashion. Preliminary CT scan of the area of interest was performed. 1% lidocaine was used to achieve local anesthesia over the area of interest. A small dermatotomy was made. Under periodic CT surveillance, a 19-gauge needle guide was advanced towards the targeted lesion and 4 separate 20-gauge core biopsy specimens were obtained. A blood patch was applied as the needle guide was removed and hemostasis was achieved with manual compression. Complications: No immediate Impression: 1. CT-guided right lung biopsy as described. PQRS Compliance Statement: One or more of the following individualized dose reduction techniques were utilized for this examination: 1. Automated exposure control 2. Adjustment of the mA and/or kV according to patient size 3. Use of iterative reconstruction technique
--- NOTE | 2019-01-22 18:06 | PATHOLOGY ---
[facility] Accession Number: [id number] . 01 Material submitted: . lung - MIDDLE LOBE RIGHT LUNG BIOPSY. Modifiers: middle lobe, right . 01 Clinical history: . Middle lobe right lung mass . 02 Diagnosis: Lung tissue, right lung mass, image-guided needle biopsy: - Focal fibrosis and chronic inflammation. . (JPM:mml; 01/22/2019) QL/01/22/2019 . 02 Comment: Sections of the right lung mass image-guided needle biopsy reveal two small segments of lung tissue. One of the segments shows focal fibrous scarring and chronic inflammation. The other segment shows lung tissue with recent intra-alveolar hemorrhage. There is no evidence of malignancy. Correlate clinically. . (JPM:mml; 01/22/2019) . 02 Electronically signed: . Hamlet Nguyễn MD, Pathologist NPI- [id number] . 01 Gross description: . The specimen is received in formalin, labeled "Cuong Camacho, right lung biopsy". Received are several friable needle cores of pale rosa tissue ranging in length from 0.1 to 0.5 cm, with each measuring 0.1 cm in diameter. The specimen is filtered and entirely submitted in cassette A1. (CAA; 01/21/2019) QAC/QAC . 02 Pathologist provided ICD-10: J84.10, J98.4 . 02 CPT . 903124 Specimen Comment: A courtesy copy of this report has been sent to Specimen Comment: [phone], , , . Specimen Comment: Report sent to , , Specimen Comment: and Performed at: 01 [facility] [address], [place], [place] [id number] MD Daron Fields MD Phone: [phone] Performed at: 02 [facility] [address] [place], [place] [id number] MD Hamlet Nguyễn MD Phone: [phone]
== END 2019-01-21 13:30 ==
LOC: INTRAD 07:05
PROVIDERS: ATTEND Internal Medicine Pulmonary Disease
DX: J84.10 Pulmonary fibrosis, unspecified (principal); J98.4 Other disorders of lung; Z79.899 Other long term (current) drug therapy; Z79.01 Long term (current) use of anticoagulants
CPT/HCPCS: 32405; 36415; 71045; 77012; 85025; 85610; 85730; 87071; 87075; 87102; 88305; 99152; 99153; C1892; J2250; J3010

== ENCOUNTER → 2019-02-08 | Outpatient (CLI) | payer BC ==
[2019-01-21 12:45] VITALS: BP 137/64
[~2019-02-08] MED LIST changes: +ASPI-630 PO; +CINN500C2 PO; +MULT-245 PO; +OMEG1CAP38 PO; +PANT40TA77 PO; +RANI150C PO; +[UNRECOGNIZED DRUG - OTHER] PO; +sugar blocker PO
--- NOTE | 2019-02-08 15:33 | RAD ---
EXAM: PA and Lateral Views of the Chest DATE: 02/08/2019 12:00 AM INDICATION: Right lung nodules. COMPARISON: CT 01/21/2019 09/21/2018, radiograph 01/21/2019 09/21/2018 FINDINGS/ IMPRESSION: The heart is not enlarged. Aorta is tortuous. Mediastinal and hilar contours are normal. Also bilateral lung nodules are seen including a cavitary right midlung nodule. These are better assessed on prior CT. No lobar consolidation. No pleural effusion or pneumothorax. Electronically signed by: Kelby Donis MD (02/08/2019 3:30 PM) [facility]
== END | disposition home or self-care (01) ==
LOC: RAD 10:56
PROVIDERS: ATTEND Internal Medicine Critical Care Medicine
DX: R91.8 Other nonspecific abnormal finding of lung field (principal)
CPT/HCPCS: 71046

== ENCOUNTER → 2019-02-09 | Outpatient (CLI) | payer BC ==
[2019-01-21 12:45] VITALS: BP 137/64
[2019-02-09 19:09] LABS: RHEUMATOID FACTOR <10.0 IU/mL (0.0-13.9)
== END | disposition home or self-care (01) ==
LOC: LAB 08:36
PROVIDERS: ATTEND Internal Medicine Pulmonary Disease
DX: R06.02 Shortness of breath (principal)
CPT/HCPCS: 86021; 86431; 86481

== ENCOUNTER → 2019-03-22 | Outpatient (CLI) | payer BC ==
[2019-01-21 12:45] VITALS: BP 137/64
--- NOTE | 2019-03-23 09:58 | RAD ---
CT CHEST WO CONTRAST Indication: Lung nodules Technique: Noncontrast CT imaging was performed of the chest, multiplanar reconstruction images submitted. One or more of the following individualized dose reduction techniques were utilized for this examination: 1. Automated exposure control 2. Adjustment of the mA and/or kV according to patient size 3. Use of iterative reconstruction technique. Comparison: September 21, 2018 Findings: There is again cavitary mass lesion of the right lower lobe and overall greatest dimension about 1.7 cm transverse by 1.5 cm AP by 1.4 cm CC. This previously measured about 1.6 cm transverse by 1.5 cm AP by 1.3 cm CC. This again has thickened mead with micronodular appearance. [place] focus of masslike density of the right middle lobe now measures about 2.3 cm x 1 cm axial oblique dimensions by 1.7 cm CC versus previously about 1.9 x 0.9 x 1.5 cm in similar measurement planes. Tiny 0.1 to 0.2 cm left lower lobe nodule image 32 series 2 is stable. No new pulmonary nodularity is identified. There are some foci of calcified nodularity of the lower lobes bilaterally. There is multilevel thoracic spondylosis. No new significantly enlarged nodes are identified of the chest. There is again probable nodule of the left isthmus of thyroid gland about 1.5 cm, not significantly changed. IMPRESSION: 1. Right middle lobe mass is very slightly larger, cavitary mass lesion of the right lower lobe fairly similar in size. No new pulmonary nodularity is identified. 2. There is again probable nodule of the left isthmus of the thyroid gland. Electronically signed by: Alex Carpio MD (03/23/2019 9:56 AM) [id number]
== END | disposition home or self-care (01) ==
LOC: CT 09:38
PROVIDERS: ATTEND Internal Medicine Pulmonary Disease
DX: R91.8 Other nonspecific abnormal finding of lung field (principal); M47.814 Spondylosis without myelopathy or radiculopathy, thoracic region
CPT/HCPCS: 71250